=== PATIENT | female | born 1955 | race Caucasian/White ===

== ENCOUNTER 2020-05-18 11:20 | Day surgery (SDC) | payer BC, OTHER ==
[2020-05-17 11:28] LABS: BASOPHILS # (AUTO) 0.1 X10'3 (0-0.2); BASOPHILS % (AUTO) 0.9 % (0-1); EOSINOPHILS # (AUTO) 0.2 X10'3 (0-0.9); EOSINOPHILS % (AUTO) 2.6 % (0-6); LYMPHOCYTES # (AUTO) 1.9 X10'3 (1.1-4.8); LYMPHOCYTES % (AUTO) 33.4 % (21-51); MEAN CORPUSCULAR HEMOGLOBIN 29.1 PG (27.0-31.0); MEAN CORPUSCULAR VOLUME 85.6 FL (78-98); MEAN PLATELET VOLUME 8.5 FL (7.4-10.4); MONOCYTES # (AUTO) 0.4 X10'3 (0-0.9); MONOCYTES % (AUTO) 6.5 % (2-12); NEUTROPHILS # (AUTO) 3.3 X10'3 (1.8-7.7); NEUTROPHILS % (AUTO) 56.6 % (42-75); PRE OP HEMATOCRIT 38.7 % (35.0-45.0); PRE OP HEMOGLOBIN 13.1 g/dL (12.0-16.0); PRE OP PLATELET COUNT 262 X10'3 (140-440); RED BLOOD COUNT 4.52 X10'6 (4.20-5.60); RED CELL DISTRIBUTION WIDTH 13.9 % (11.5-14.5)
[2020-05-17 11:40] LABS: PRE OP PROTIME 10.3 SECONDS (9.0-12.0)
[2020-05-17 11:49] LABS: ALBUMIN 3.7 G/DL (3.4-5.0); ALBUMIN/GLOBULIN RATIO 0.8 (1.1-1.5); ALKALINE PHOSPHATASE 106 IU/L (46-116); BLOOD UREA NITROGEN 8 MG/DL (7-18); BUN/CREATININE RATIO 10.8 (6.6-38.0); CALCIUM 9.2 MG/DL (8.5-10.1); CHLORIDE 102 MMOL/L (99-107); CREATININE 0.74 MG/DL (0.40-0.90); PRE OP ALT 23 U/L (30-65); PRE OP ANION GAP 8 (8-16); PRE OP AST 15 U/L (10-37); PRE OP BILIRUB, TOTAL 0.7 MG/DL (0.0-1.0); PRE OP GLUCOSE 108 MG/DL (70-104); PRE OP POTASSIUM 3.9 MMOL/L (3.4-5.1); PRE OP SODIUM 138 MMOL/L (135-145); TOTAL CARBON DIOXIDE 27.9 MMOL/L (24-32); TOTAL PROTEIN 8.1 G/DL (6.4-8.2); eGFR 79 ML/MIN
[2020-05-18] VITALS (8 sets, daily range): BP systolic 121–138; BP diastolic 68–84
[~2020-05-18] VITALS: Ht 167.6 cm; Wt 97.7 kg
[~2020-05-18 11:20] MED LIST: FLUT1BLS9 PO; LISI10TA4 PO; PARO10TA4 PO; ceFAZolin 2gm in dextrose, iso 50 ML IV ONE; famotidine 20mg tablet PO ONE; ringers solution, lacted 1,000 ML IV SCH; vancomycin 1,500 MG in NS 300ml IV soln IV ONE
[2020-05-18] MEDS ORDERED: sevoflurane 250ml liquid IH ONE (13:38)
[2020-05-18] MEDS ORDERED: fentaNYL/PF 50MCG/1 ML 2ML syringe ONE (13:42)
[2020-05-18] MEDS ORDERED: midazolam 2 mg/2 ml injection ONE (13:43)
[2020-05-18] MEDS ORDERED: vancomycin 1,000mg inj ONE (14:04)
[2020-05-18] MEDS ORDERED: ondansetron/PF 4mg/2ml inj ONE (14:54)
[2020-05-18] MEDS ORDERED: propofol inj 20 ML IV ONE (14:54)
[2020-05-18] MEDS ORDERED: ePHEDrine 50MG/ML INJ. ONE (14:54)
[2020-05-18] MEDS ORDERED: dexamethasone sod phosphate 4mg/ml inj. ONE (14:54)
[2020-05-18] MEDS ORDERED: LIDOcaine 1%/PF 5ML 10 MG/ML VIAL ONE (14:54)
--- NOTE | 2020-05-18 14:58 | NUR ---
Received from OR via flora, accompanied by Anesthesiologist Dr. May and report given by Anesthesiolgist. PATIENT WAKING UP, DENIES PAIN, V/S WNL, NEUROVASCULAR CHECKS INTACT, 20G PIV DEANA AC , LEFT KNEE CDI with ANNA and immbolizer in place Addendum: 05/18/20 at 1517 by Camila Cooper RN Amended: Links added.
[2020-05-18] MEDS ORDERED: meperidine/PF 25mg/ml syringe IV PRN ×2 (15:00)
[2020-05-18] MEDS ORDERED: morphine 4 MG/ML inj SYRINge IV PRN (15:00)
[2020-05-18] MEDS ORDERED: morphine 2 MG/ML inj. syringe IV PRN (15:00)
[2020-05-18] MEDS ORDERED: ondansetron/PF 4mg/2ml inj IV PRN (15:00)
[2020-05-18] MEDS ORDERED: proCHLORperazine 10 MG/2 ml inj IV PRN (15:00)
[2020-05-18] MEDS ORDERED: ringers solution, lacted 1,000 ML IV SCH (15:00)
[2020-05-18] MEDS ORDERED: meperidine/PF 25mg/ml syringe ONE (15:02)
[2020-05-18] MEDS: meperidine/PF 25mg/ml syringe IV PRN ×2 (15:04→15:33)
--- NOTE | 2020-05-18 16:18 | NUR ---
Patient discharged home with all belongings. VSS. NO oxygen needed. Encouraged and educated about using cpap machine, especially for tonight. Daughter, Camila, picked up in private vehicle. IV dc'd from left AC. Left knee has candido wrap and immobilizer on. Patient states she understands all discharge instructions and will follow up with Dr. Monge in 2 weeks per the orders.
== END 2020-05-18 16:18 | disposition home or self-care (01) ==
LOC: PAS 11:20
PROVIDERS: ATTEND Orthopaedic Surgery
DX: S83.012A Lateral subluxation of left patella, initial encounter (principal); Z20.828 Contact with and (suspected) exposure to other viral communicable diseases; G47.30 Sleep apnea, unspecified; I10 Essential (primary) hypertension; F41.9 Anxiety disorder, unspecified; F32.9 Major depressive disorder, single episode, unspecified; M17.0 Bilateral primary osteoarthritis of knee; E66.9 Obesity, unspecified; Z68.35 Body mass index [BMI] 35.0-35.9, adult; G89.18 Other acute postprocedural pain; Z96.653 Presence of artificial knee joint, bilateral; Z79.899 Other long term (current) drug therapy; Z79.01 Long term (current) use of anticoagulants; Z98.890 Other specified postprocedural states; Z91.040 Latex allergy status; Z72.89 Other problems related to lifestyle; X58.XXXA Exposure to other specified factors, initial encounter; Y93.89 Activity, other specified; Y92.89 Other specified places as the place of occurrence of the external cause; Y99.8 Other external cause status
CPT/HCPCS: 27422; 36415; 64447; 80053; 82948; 85025; 85610; 85730; 86885; 86900; 86901; 87635; 93005; C9803; J1100; J2175; J2250; J2405; J2704; J3010; J3370; J7040; J7120; L1832; A4618; A7000